=== PATIENT | male | born 1980 | race Caucasian/White ===

== ENCOUNTER 2021-11-17 13:08 | Emergency (ER) | payer OTHER, SELFPAY ==
--- NOTE | ~2021-11-17 | XR_ITS ---
EXAMINATION: XR FOOT, RIGHT CLINICAL INFORMATION: Swelling lateral and dorsal COMPARISON: None TECHNIQUE: AP, lateral, and oblique views of the right foot. FINDINGS: There is a small density along the medial aspect of the distal aspect of the distal tuft of the first digit. This could be a foreign body or dystrophic calcification. Avulsion cannot be excluded. Otherwise no acute finding. Some degenerative spurring at the insertion of the Achilles XR/XR foot RT min 3V IMPRESSION: Correlation recommended for the region of the distal aspect distal phalanx first digit. Otherwise no suspicious finding.
--- NOTE | ~2021-11-17 | US_ITS ---
EXAMINATION: US VENOUS ULTRASOUND WITH DOPPLER LOWER EXTREMITY, RIGHT CLINICAL INFORMATION: Edema, pain COMPARISON: None TECHNIQUE: Ultrasound of the deep veins is performed from the hip to the calf with compression sonography and color and pulse Doppler assessment. Spectral analysis with color-flow imaging is performed. FINDINGS: There is normal venous compression and respiratory variation and augmented flow. The visualized common femoral vein, superficial femoral vein, profunda femoral vein, popliteal vein, and the trifurcation region shows no evidence of deep venous thrombosis. There is no significant popliteal fossa cyst. If the patient's symptoms persist, followup ultrasound in 5 days 7 days might be of value to exclude proximal propagation from a non-visualized calf vein. US/US venous duplex LE RT IMPRESSION: No DVT demonstrated in the right lower extremity.
[2021-11-17 13:21] VITALS: BP 143/88; PULSE 64; RESP 18; TEMP 37.1; O2SAT 100; BMI 37.0
--- NOTE | 2021-11-17 14:58 | PC.NURSE ---
called for labs no answer
[2021-11-17 15:14] LABS: MANUAL DIFF FLAG NO
[2021-11-17 15:16] LABS: Basophils Percent Auto 0.4 % (0-2); Eosinophils Absolute Auto 0.1 X10*3/uL (0.0-0.4); Eosinophils Percent Auto 0.6 % (0-4); Hematocrit 40.3 % (42.0-52.0); Hemoglobin 13.6 g/dl (14.0-18.0); Imm Gran Abs Auto 0.02 X10*3/uL (0.00-0.03); Imm Gran Pct Auto 0.2 % (0.0-0.4); Lymphocytes Absolute Auto 1.3 X10*3/uL (1.2-4.9); Lymphocytes Percent Auto 15.9 % (20-40); Mean Corpuscular HGB Conc 33.7 g/dl (31.0-36.0); Mean Corpuscular Hemoglobin 29.4 pg (27.0-33.0); Mean Platelet Volume 8.3 fL (9.4-12.4); Monocytes Absolute Auto 0.9 X10*3/uL (0.1-1.2); Monocytes Percent Auto 10.8 % (2-11); Neutrophils Absolute Auto 5.9 x10*3/uL (2.0-8.3); Neutrophils Percent Auto 72.1 % (45-73); Platelet Count 247 X10*3/uL (160-400); Red Blood Count 4.63 X10*6/uL (4.60-5.80); Red Cell Distribution Width 11.8 % (11.0-16.0); White Blood Count 8.1 X10*3/uL (4.8-10.8)
--- NOTE | 2021-11-17 15:30 | ED.GENADULT ---
HPI - General Adult General Chief complaint: Extremity Problem Stated complaint: r leg foreign body foot Time Seen by Provider: 11/17/21 15:29 Source: patient Mode of arrival: ambulatory Limitations: no limitations History of Present Illness HPI narrative: 41-year-old male presents for DVT rule out, sent here from urgent care. Patient thinks he injured his right foot while trail running 3 weeks ago. His right foot was swollen, he went to urgent care who took x-rays the patient reports were negative for fracture, with a possible small foreign body in his foot. Patient was put on Keflex and Bactrim, course of which she finished, but states that his right foot is still swelling. States his right foot was very swollen yesterday, but the swelling has gone down today. Patient is an IV drug user, on Suboxone, his last use was today. Patient states he does not inject in his feet or his legs. 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 His foot is not painful to stand on, it is the swelling that concerns him. Patient lives in a recovery house, was recently incarcerated Related Data Allergies Allergy/AdvReac Type Severity Reaction Status Date / Time No Known Allergies Allergy Verified 11/17/21 15:42 Review of Systems Constitutional: Constitutional: Denies body ache(s), Denies chills, Denies fatigue, Denies fever(s), Denies headache(s), Denies malaise and Denies weakness Eyes: Eyes: Denies diplopia ENT: Denies vertigo, Denies dizziness, Denies headache(s) and Denies throat swelling Cardiovascular: Cardiovascular: Denies chest pain, Denies syncope, Denies leg edema, Denies lightheadedness, Denies Loss of Consciousness, Denies palpitations and Denies dyspnea Respiratory: Respiratory: Denies chest congestion, Denies cough and Denies dyspnea Musculoskeletal: Musculoskeletal: Denies muscle cramps, Denies muscle weakness, Denies numbness, Denies radiating pain into limb and Denies tingling Comments: Swelling of right foot Neurologic: Denies confusion, Denies vertigo, Denies dizziness, Denies syncope, Denies headache(s), Denies numbness, Denies tingling and Denies weakness Psychiatric: Psychiatric: Denies anxiety, Denies confusion and Denies depression Endocrine: Endocrine: Denies fatigue and Denies palpitations Allergic/Immunologic: Allergic/Immunologic: Denies throat swelling [facility] Past Medical History [facility] Narrative: IVDU Social History Social History Advance Directives: No Advance Directives Information Provided: No Physical Exam ED Vital Signs: Vital Signs - 24 hr 11/17/21 13:21 11/17/21 17:00 Temperature 98.8 F 97.6 F Pulse Rate 64 62 Respiratory Rate 18 16 Blood Pressure 143/88 H 125/90 H Pulse Oximetry 100 100 BMI result Body Mass Index 37.0 Const General: No confusion Nutritional Appearance: well nourished Orientation/consciousness: No confusion Limitations: no limitations Eyes Conjunctivae: conjunctivae normal Pupils: Equal, round and reactive pupils present EOM: EOMs intact bilaterally Neck Neck: Yes full ROM, Yes no lymphadenopathy and Yes supple Resp Effort & Inspection: normal respiratory effort and able to speak in complete sentences Auscultation: clear to auscultation bilaterally, no crackles, no rales, no rhonchi and no wheezes Cardio Rate: regular rate Rhythm: regular rhythm Heart sounds: S1 normal heart sound present and S2 normal heart sound present Skin General skin exam: no rashes or lesions noted Neuro General: No confusion Cranial nerves: Yes Equal, round and reactive pupils present Extrem Right lower extremity: full ROM, normal capillary refill, edema Details: non-pitting and 1+ and foot Details: normal capillary refill, tenderness Location: of the dorsal foot Location: laterally and of the calcaneus, toes with normal ROM and vascular exam Details: dorsalis pedis pulse present, posterior tibial pulse present and normal capillary refill; Negative for not cool and no cyanosis; Negative for no unusual warmth; No no cyanosis Psych Appearance: grossly normal Affect: normal affect Attitude: cooperative Thought process: Normal thought process present Course Course Course Narrative: 41-year-old male presents for right lower extremity swelling. Patient was sent here from urgent care for DVT rule out On exam, patient is mildly edematous in his dorsal and he lateral aspect of his right foot. Patient has intact lower extremity pulses, sensation, motor strength, DTRs. No tenderness to palpation of knee, he has full range of motion, no crepitus Patient has no leukocytosis, his vitals are stable, he is afebrileI doubt this is infectious. Right calf is not swollen, red, warm, tender. Patient is tender over the dorsal aspect of his right foot lateral aspect of right foot DVT negative for ultrasound, x-ray shows small his BP along medial aspect of distal tuft of great toe. Possibly foreign body, calcification, or avulsion fracture X-ray reading does not correlate with the location of patient's pain Gave walking boot, counseled Tylenol and will follow-up with orthopedics. Patient verbalized agreement understanding of the plan Reevaluation(s) Reevaluation #1: US/US venous duplex LE RT IMPRESSION: No DVT demonstrated in the right lower extremity. FINDINGS: There is a small? density along the medial aspect of the distal aspect of the distal tuft of the first digit. This could be a foreign body or dystrophic calcification. Avulsion cannot be excluded. Otherwise no acute finding. Some degenerative spurring at the insertion of the Achilles XR/XR foot RT min 3V IMPRESSION: Correlation recommended for the region of the distal aspect distal phalanx first digit. Otherwise no suspicious finding. Medical Decision Making Lab Data Result diagrams: 11/17/21 15:05 Labs: Lab Results 11/17/21 Range/Units 15:05 WBC 8.1 (4.8-10.8) X10*3/uL RBC 4.63 (4.60-5.80) X10*6/uL Hgb 13.6 L (14.0-18.0) g/dl Hct 40.3 L (42.0-52.0) % MCV 87.0 (80.0-98.0) fL MCH 29.4 (27.0-33.0) pg MCHC 33.7 (31.0-36.0) g/dl RDW 11.8 (11.0-16.0) % Plt Count 247 (160-400) X10*3/uL MPV 8.3 L (9.4-12.4) fL Immature Gran % (Auto) 0.2 (0.0-0.4) % Neut % (Auto) 72.1 (45-73) % Lymph % (Auto) 15.9 L (20-40) % [place] % (Auto) 10.8 (2-11) % Eos % (Auto) 0.6 (0-4) % Baso % (Auto) 0.4 (0-2) % Lymph # (Auto) 1.3 (1.2-4.9) X10*3/uL [place] # (Auto) 0.9 (0.1-1.2) X10*3/uL Eos # (Auto) 0.1 (0.0-0.4) X10*3/uL Baso # (Auto) 0.0 (0.0-0.2) X10*3/uL Abs Immat Gran (auto) 0.02 (0.00-0.03) X10*3/uL Absolute Neuts (auto) 5.9 (2.0-8.3) x10*3/uL Absolute Nucleated RBC 0.000 (0.0-0.012) X10*3/uL Nucleated RBC % (auto) 0.0 (0.0-0.2) /100WBC Discharge Plan Discharge Clinical Impression: Fractured great toe Patient Disposition: Home, Self-Care Additional Instructions: Your labs showed no evidence of infection. You have no blood clot in your leg. Your x-ray shows a possible fracture of your vague right toe, possible calcification, or possible foreign body. Please use the boot as this may help with pain. Please take Tylenol. Please follow-up with Orthopedics, I have referred you to them, but I would like you to call them at the following number [phone] Please return to emergency room for any new or concerning symptoms Referrals: Irma Townsend MD [Physician] - Interventions: ED Discharge Assessment Last Done: 11/17/21 17:09 Discharge Date/Time: 11/17/21 17:11
[2021-11-17 17:00] VITALS: BP 125/90; PULSE 62; RESP 16; TEMP 36.4; O2SAT 100
== END 2021-11-17 17:11 | disposition home or self-care (01) ==
PROVIDERS: Emergency Provider Emergency Medicine
DX: S92.424A Nondisplaced fracture of distal phalanx of right great toe, initial encounter for closed fracture (principal); Y93.02 Activity, running; R60.0 Localized edema; M79.671 Pain in right foot; Y92.828 Other wilderness area as the place of occurrence of the external cause; Y99.8 Other external cause status
CPT/HCPCS: 36415; 73630; 85025; 93971; 99283; 99284

== ENCOUNTER 2023-05-15 15:27 | Emergency (ER) | payer MEDICAID, SELFPAY ==
--- NOTE | ~2023-05-15 | US_ITS ---
EXAMINATION: US VENOUS ULTRASOUND WITH DOPPLER LOWER EXTREMITY, LEFT CLINICAL INFORMATION: Pain COMPARISON: None available. TECHNIQUE: Ultrasound of the deep veins is performed from the hip to the calf with compression sonography and color and pulse Doppler assessment. Spectral analysis with color-flow imaging is performed. FINDINGS: There is normal venous compression and respiratory variation and augmented flow. The visualized common femoral vein, superficial femoral vein, profunda femoral vein, popliteal vein, and the trifurcation region shows no evidence of deep venous thrombosis. There is no significant popliteal fossa cyst. There is a noncompressible varicosity along the left medial proximal calf correspond with the area of pain. This would be consistent with a superficial area of thrombophlebitis If the patient's symptoms persist, followup ultrasound in 5 days 7 days might be of value to exclude proximal propagation from a non-visualized calf vein. US/US venous duplex LE IMPRESSION: Superficial thrombophlebitis along a left medial calf varicosity but no central DVT demonstrated in the left lower extremity. This critical result was discussed with Dr Jimenez at 05/15/2023 5:59 PM and it was ascertained that the content and urgency of the report was understood at the time of direct communication.
--- NOTE | 2023-05-15 15:36 | ED_ITS ---
HPI - General Adult General Chief complaint: General Medical Stated complaint: cellulitis , blood clot in leg ? Time Seen by Provider: 05/15/23 20:02 Source: patient Mode of arrival: ambulatory Limitations: no limitations History of Present Illness HPI narrative: Patient is a 42 year old assigned male at with a history of IV drug use presenting to the emergency department today with left lower leg swelling, warmth, and redness. Patient states that over the last few days he was shooting up in his leg and he noticed that his leg got swollen, warm, and red. Patient denies any dizziness, lightheadedness, abdominal pain, nausea, vomiting, fever, chills, blurry vision, double vision, loss of vision, chest pain, difficulty breathing, shortness of breath, back pain, night sweats, pain with urination, increased urinary frequency, increased urinary urgency, blood in his urine or stool, syncope or a near syncopal episode, recent trauma or falls, bowel incontinence, bladder incontinence, bowel retention, bladder retention, or any other complaints at this time. Onset (ago): day(s) Location: left and lower extremity Severity: mild Relieving factors: none Exacerbating factors: none Associated symptoms: denies other symptoms Treatments prior to arrival: none Related Data Previous Rx's Medication Instructions Recorded cefuroxime axetil 250 mg tablet 250 mg PO BID 7 days #14 tabs 05/15/23 doxycycline hyclate 100 mg tablet 100 mg PO BID 7 days #14 tabs 05/15/23 Allergies Allergy/AdvReac Type Severity Reaction Status Date / Time No Known Allergies Allergy Verified 11/17/21 15:42 Review of Systems 2 Constitutional: Constitutional: Reports no additional constitutional complaints, Denies chills, Denies fever(s) and Denies night sweats Eyes: Eyes: Reports no additional eye complaints, Denies blurry vision, Denies change in vision, Denies diplopia, Denies eye discharge, Denies loss of vision and Denies eye pain ENT: Denies dizziness Cardiovascular: Cardiovascular: Reports no additional cardiovascular complaints, Denies chest pain, Denies lightheadedness, Denies Loss of Consciousness and Denies dyspnea Respiratory: Respiratory: Reports no additional respiratory complaints and Denies dyspnea Gastrointestinal: Gastrointestinal: Reports no additional gastrointestinal complaints, Denies abdominal pain, Denies melena, Denies hematochezia, Denies change in bowel habits and Denies change in stool character Genitourinary: Genitourinary: Reports no additional male genitourinary complaints, Denies hematuria, Denies oliguria, Denies difficulty urinating, Denies dysuria, Denies urinary frequency, Denies urinary hesitancy, Denies urinary incontinence and Denies urinary urgency Musculoskeletal: Musculoskeletal: Reports no additional musculoskeletal complaints, Denies numbness and Denies tingling Integumentary/Breasts: Comments: left lower leg redness, warmth, and swelling Neurologic: Denies dizziness, Denies loss of vision, Denies numbness and Denies tingling Psychiatric: Psychiatric: Reports no additional psychiatric complaints Endocrine: Endocrine: Reports no additional endocrine complaints Hematologic/Lymphatic: Hematologic/Lymphatic: Reports no additional hematologic/lymphatic complaints Allergic/Immunologic: Allergic/Immunologic: Reports no additional allergic/immunologic complaints PMFSH Past Medical History Attestation statement: The following information was validated with the patient. Source: old records reviewed and nursing notes reviewed Physical Exam ED Vital Signs: Vital Signs - 24 hr 05/15/23 15:40 05/15/23 20:00 Temperature 98.1 F 98.0 F Pulse Rate 86 66 Respiratory Rate 18 18 Blood Pressure 169/83 H 134/81 Pulse Oximetry 99 96 Oxygen Delivery Method Room Air Room Air BMI result Body Mass Index 27.6 Const General: cooperative, no acute distress, alert and awake Nutritional Appearance: well nourished Orientation/consciousness: patient oriented x3 Limitations: no limitations [facility] Head: Yes normal to inspection and Yes atraumatic Ears: hearing grossly normal bilaterally and external ears normal General nose exam: Normal external nose present, no nasal discharge noted and no epistaxis Face and sinus: Yes normal facial exam, No abrasion and No laceration Mouth: Normal oral and palatal mucosa present, no drooling and no muffled voice Eyes General: appearance normal, both eyes and all related structures Periorbital: periorbital findings normal Eyelids: Yes eyelids normal Conjunctivae: conjunctivae normal Pupils: Equal, round and reactive pupils present EOM: EOMs intact bilaterally Neck Neck: Yes normal visual inspection, Yes full ROM and Yes no lymphadenopathy Chest Chest palpation & inspection: normal inspection of the chest Resp Effort & Inspection: normal respiratory effort and able to speak in complete sentences GI Inspection: Yes normal to inspection Neuro General: patient oriented x3 and moves all extremities Cranial nerves: Yes Equal, round and reactive pupils present Cognition (Neuro): normal cognition Motor exam (neuro): 5/5 motor strength present throughout Sensory Exam: Normal double simultaneous stimulation for sensation Coordination: [id number] test normal Extrem Other: minimal swelling, redness, and warmth to the left lower extremity, no abscess or open areas General: Yes full ROM and Yes capillary refill normal Psych Appearance: grossly normal Mental Status: mental status grossly normal Affect: normal affect Attitude: cooperative Thought process: Normal thought process present Thought content: Normal thought content present Insight: Good insight present (Psych) Course Course Course Narrative: RME performed by Katharina Jain PA-C. Patient is a 42 year old assigned male at presenting to the emergency department with left lower leg pain and swelling. Patient states that he is an IV drug user. Patient states that he was on methadone but it got canceled so he went back to shooting up and he shot up in his left lower extremity. Patient states that over the last 2 days it has spread up from his lower leg to his thigh. Labs ordered. Patient placed back in the waiting room pending room availability and results. Medical Decision Making Medical Decision Making MDM Narrative: Patient is a 42 year old assigned male at with a history of IV drug use presenting to the emergency department today with left lower leg swelling, warmth, and redness. Patient's physical exam was as noted in the physical exam portion of this note. Patient's blood work showed an elevated ESR of 22 and an elevated CRP of 6.87 but the results were otherwise unremarkable. Patient's left lower leg US showed superficial thrombophlebitis but no evidence of DVT. I explained my physical exam findings as well as all test results to the patient. I answered all questions asked by the patient. Patient was given his first dose of antibiotics while in the department. I stressed the importance of the patient taking his medication as prescribed. I stressed the importance of the patient following up with his primary care provider. I stressed the importance of the patient returning to the emergency department immediately if his symptoms were to worsen or if he were to develop any dizziness, shortness of breath, difficulty breathing, chest pain, blurry vision, loss of vision, nausea, vomiting, abdominal pain, fever, chills, back pain, or any other complaints. Patient verbalized agreement and understanding with this treatment plan and discharge. Differential Diagnosis Differential Diagnoses: The differential diagnosis associated with the presentation includes Left lower leg cellulitis Left lower leg thrombophlebitis Left lower leg DVT Admission/Observation Consideration of admission/observation: Escalation of care including admission/observation considered Patient would have been admitted to the hospital had his work up had any findings where hospital admission was appropriate and his clinical presentation warranted hospital admission. Lab Data [facility] Lab Attestation statement: I reviewed the patient's lab results. My interpretation of these results are in the [facility] Rationale portion of this note. 05/15/23 16:21 05/15/23 16:20 Labs: Lab Results 05/15/23 05/15/23 Range/Units 16:20 16:21 WBC 7.1 (4.8-10.8) X10*3/uL RBC 4.51 L (4.60-5.80) X10*6/uL Hgb 12.8 L (14.0-18.0) g/dl Hct 37.7 L (42.0-52.0) % MCV 83.6 (80.0-98.0) fL MCH 28.4 (27.0-33.0) pg MCHC 34.0 (31.0-36.0) g/dl RDW 12.0 (11.0-16.0) % Plt Count 267 (160-400) X10*3/uL MPV 8.5 L (9.4-12.4) fL Immature Gran % (Auto) 0.4 (0.0-0.4) % Neut % (Auto) 69.9 (45-73) % Lymph % (Auto) 22.4 (20-40) % [place] % (Auto) 6.6 (2-11) % Eos % (Auto) 0.3 (0-4) % Baso % (Auto) 0.4 (0-2) % Lymph # (Auto) 1.6 (1.2-4.9) X10*3/uL [place] # (Auto) 0.5 (0.1-1.2) X10*3/uL Eos # (Auto) 0.0 (0.0-0.4) X10*3/uL Baso # (Auto) 0.0 (0.0-0.2) X10*3/uL Abs Immat Gran (auto) 0.03 (0.00-0.03) X10*3/uL Absolute Neuts (auto) 5.0 (2.0-8.3) x10*3/uL Absolute Nucleated RBC 0.000 (0.0-0.012) X10*3/uL Nucleated RBC % (auto) 0.0 (0.0-0.2) /100WBC ESR 22 H (0-15) MM/HR PT 15.5 H (11.1-13.3) SEC INR 1.3 H (0.9-1.1) APTT 31.5 (26.0-36.4) SEC Sodium 135 (135-145) mmol/L Potassium 3.8 (3.3-5.1) mmol/L Chloride 102 (96-108) mmol/L Carbon Dioxide 25 (22-29) mmol/L Anion Gap 12 (12-20) BUN 10 (9-16) mg/dL Creatinine 0.74 (0.5-1.4) mg/dL Estim Creat Clear Calc 134.2 Estimated GFR > 60 Random Glucose 103 (60-115) mg/dL Lactic Acid 0.9 (0.5-2.0) mmol/L Calcium 9.1 (8.4-10.2) mg/dL Magnesium 2.0 (1.6-2.6) mg/dL Total Bilirubin 0.7 (0.0-1.0) mg/dL AST 13 (5-37) U/L ALT 8 (0-40) U/L Alkaline Phosphatase 77 (39-117) U/L C-Reactive Protein 6.87 H (< or = 0.50) mg/dL Total Protein 7.3 (6.5-8.0) g/dL Albumin 4.0 (3.5-5.0) g/dL Independent Interpretation I performed an independent interpretation of an: Ultrasound Interpretation: My interpretation is in agreement with the radiologist's impression of this imaging study. - EXAMINATION: US VENOUS ULTRASOUND WITH DOPPLER LOWER EXTREMITY, LEFT CLINICAL INFORMATION: Pain COMPARISON: None available. TECHNIQUE: Ultrasound of the deep veins is performed from the hip to the calf with compression sonography and color and pulse Doppler assessment. Spectral analysis with color-flow imaging is performed. FINDINGS: There is normal venous compression and respiratory variation and augmented flow. The visualized common femoral vein, superficial femoral vein, profunda femoral vein, popliteal vein, and the trifurcation region shows no evidence of deep venous thrombosis. There is no significant popliteal fossa cyst. There is a noncompressible varicosity along the left medial proximal calf correspond with the area of pain. This would be consistent with a superficial area of thrombophlebitis If the patient's symptoms persist, followup ultrasound in 5 days 7 days might be of value to exclude proximal propagation from a non-visualized calf vein. US/US venous duplex LE LT IMPRESSION: Superficial thrombophlebitis along a left medial calf varicosity but no central DVT demonstrated in the left lower extremity. This critical result was discussed with Dr Jimenez at 05/15/2023 5:59 PM and it was ascertained that the content and urgency of the report was understood at the time of direct communication. Dictated By: Taj Vickers MD Signed By: Electronically signed by Taj Vickers MD 05/15/23 [id number] Radiology Impression Discussion of test interpretation with radiology: I have reviewed the radiologist's reading. Prescription Management I considered prescription management with: Antibiotic (patient prescribed antibiotics for his cellulitis and thrombophlebitis.) Social Determinants Patient?s care significantly limited by Social Determinants of Health including: Other Social Determinant of Health (patient is an IV drug user.) Discharge Plan Discharge Clinical Impression: Phlebitis, Cellulitis Patient Disposition: Home, Self-Care Instructions: Cellulitis (DC), Superficial Thrombophlebitis (ED) Additional Instructions: Follow up with your primary care provider. Return to the emergency department immediately if your symptoms worsen or if you develop any dizziness, shortness of breath, difficulty breathing, chest pain, blurry vision, loss of vision, nausea, vomiting, abdominal pain, fever, chills, back pain, or any other complaints. Prescriptions: New cefuroxime axetil 250 mg tablet 250 mg PO BID 7 Days Qty: 14 0RF doxycycline hyclate 100 mg tablet 100 mg PO BID 7 Days Qty: 14 0RF Referrals: [facility] Family Medicine [Provider Group] (Call to establish and follow up with a primary care provider. If you already have a primary care provider, please follow up with them.) [facility] Primary Care, [place] [Provider Group] (Call to establish and follow up with a primary care provider. If you already have a primary care provider, please follow up with them.) [facility] Primary Care,Jaci [Provider Group] (Call to establish and follow up with a primary care provider. If you already have a primary care provider, please follow up with them.) Print Language: [place]
[2023-05-15 15:40] VITALS: BP 169/83; PULSE 86; RESP 18; TEMP 36.7; O2SAT 99; BMI 27.6
[2023-05-15 16:25] LABS: MANUAL DIFF FLAG NO
[2023-05-15 16:31] LABS: Basophils Percent Auto 0.4 % (0-2); Eosinophils Percent Auto 0.3 % (0-4); Hematocrit 37.7 % (42.0-52.0); Hemoglobin 12.8 g/dl (14.0-18.0); Imm Gran Abs Auto 0.03 X10*3/uL (0.00-0.03); Imm Gran Pct Auto 0.4 % (0.0-0.4); Lymphocytes Absolute Auto 1.6 X10*3/uL (1.2-4.9); Lymphocytes Percent Auto 22.4 % (20-40); Mean Corpuscular Hemoglobin 28.4 pg (27.0-33.0); Mean Corpuscular Volume 83.6 fL (80.0-98.0); Mean Platelet Volume 8.5 fL (9.4-12.4); Monocytes Absolute Auto 0.5 X10*3/uL (0.1-1.2); Monocytes Percent Auto 6.6 % (2-11); Neutrophils Percent Auto 69.9 % (45-73); Platelet Count 267 X10*3/uL (160-400); Red Blood Count 4.51 X10*6/uL (4.60-5.80); White Blood Count 7.1 X10*3/uL (4.8-10.8)
[2023-05-15 16:32] LABS: INTERNATIONAL NORM RATIO 1.3 (0.9-1.1); Prothrombin Time 15.5 SEC (11.1-13.3)
[2023-05-15 16:34] LABS: Partial Thromboplastin Time 31.5 SEC (26.0-36.4)
[2023-05-15 16:37] LABS: Lactic Acid 0.9 mmol/L (0.5-2.0)
[2023-05-15 16:42] LABS: Alanine Aminotransferase 8 U/L (0-40); Alkaline Phosphatase 77 U/L (39-117); Anion Gap 12 (12-20); Aspartate Amino Transferase 13 U/L (5-37); Bilirubin Total 0.7 mg/dL (0.0-1.0); Blood Urea Nitrogen 10 mg/dL (9-16); C Reactive Protein 6.87 mg/dL (< or = 0.50); Calcium 9.1 mg/dL (8.4-10.2); Carbon Dioxide 25 mmol/L (22-29); Chloride 102 mmol/L (96-108); Creatinine Clr Calc Pharmacy 134.2; Estimated Glomerular Filt Rate > 60; Glucose Random 103 mg/dL (60-115); Potassium 3.8 mmol/L (3.3-5.1); Sodium 135 mmol/L (135-145); Total Protein 7.3 g/dL (6.5-8.0)
[2023-05-15 17:13] LABS: Erythrocyte Sedimentation Rate 22 MM/HR (0-15)
[2023-05-15 20:00] VITALS: BP 134/81; PULSE 66; RESP 18; TEMP 36.7; O2SAT 96
[2023-05-15] MEDS: Doxycycline Monohydrate 100 MG CAPSULE PO (20:21)
[2023-05-15] MEDS: cefuroxime axetiL 250 MG TABLET PO (20:21)
== END 2023-05-15 20:25 | disposition home or self-care (01) ==
LOC: HO.ED 20:24
PROVIDERS: Physician Assistant Medical; Emergency Provider Emergency Medicine Emergency Medical Services
DX: I80.9 Phlebitis and thrombophlebitis of unspecified site (principal); L03.116 Cellulitis of left lower limb; M79.605 Pain in left leg
CPT/HCPCS: 36415; 80053; 83605; 83735; 85025; 85610; 85652; 85730; 86140; 87040; 93971; 99282; 99284

== ENCOUNTER 2023-12-04 17:49 | Emergency (ER) | payer MEDICAID, SELFPAY ==
--- NOTE | ~2023-12-04 | XR_ITS ---
EXAMINATION: XR LUMBOSACRAL SPINE CLINICAL INFORMATION: Low back pain. COMPARISON: None available. TECHNIQUE: Three views of the lumbosacral spine. FINDINGS: There is normal lumbar lordosis. The vertebral heights, alignment and disc heights are normal. No visible acute fracture, dislocation or subluxation. SI joints are symmetrical and normal. The soft tissues are normal. XR/XR lumbar spine 2-3V IMPRESSION: Unremarkable lumbar spine exam.
[2023-12-04 18:22] VITALS: BP 117/78; PULSE 56; RESP 14; TEMP 37.3; O2SAT 98; BMI 27.3
--- NOTE | 2023-12-04 18:22 | ED_ITS ---
HPI - General Adult General Chief complaint: Back Pain/Injury Stated complaint: back pain Time Seen by Provider: 12/04/23 21:22 Source: patient Mode of arrival: wheelchair Limitations: no limitations History of Present Illness ED Provider: Marin Hernández NP HPI narrative: Patient is a 43-year-old male who presents to the emergency department for evaluation. He arrived here today high public transportation. At the time my evaluation he is sitting in a wheelchair. 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 He had a long bus ride home, he states after sitting down for some time he had trouble standing up due to pain in his lower back. He reports that the muscles in this area feel very tight. Pain radiates diffusely across the lower back and is made worse with particular movements. Reports a history of a similar pain in the past due to a pulled muscle in his upper back. Pain does not radiate to the legs. Denies recent precipitating injury, fevers, chills, burning with micturition, urinary frequency/urgency/hesitancy, bladder or bowel dysfunction, numbness or tingling of the perineum or bilateral legs. Denies any recent surgical procedures, any known immune compromising conditions, personal history of cancer. He does admit to a history of IV drug usage; using intravenous heroin, he recently started at [facility] methadone clinic last week, currently taking 80 mg daily, he does state that he was unable to get there today for his methadone dosing. Related Data Previous Rx's ?Medication ?Instructions ?Recorded cefuroxime axetil 250 mg tablet 250 mg PO BID 7 days #14 tabs 05/15/23 doxycycline hyclate 100 mg tablet 100 mg PO BID 7 days #14 tabs 05/15/23 cyclobenzaprine 5 mg tablet 5 mg PO TID PRN muscle spasm #14 12/05/23 tabs Allergies Allergy/AdvReac Type Severity Reaction Status Date / Time No Known Allergies Allergy Verified 12/04/23 18:24 Review of Systems Review of Systems: Yes all other systems are reviewed and are negative PMFSH Past Medical History Attestation statement: The following information was validated with the patient. Source: old records reviewed Social History Social History Unable to assess alcohol history related to: Unknown Smoked in Last 30 Days: Yes Use of substances other than those prescribed or required for medical reasons: Unknown Advance Directives: No Advance Directives Information Provided: No Do you have a plan to hurt others: No Plan Physical Exam ED Vital Signs: Vital Signs - 24 hr 12/04/23 18:22 12/04/23 21:18 Temperature 99.2 F 98.8 F Pulse Rate 56 61 Respiratory Rate 14 18 Blood Pressure 117/78 120/69 Pulse Oximetry 98 96 Oxygen Delivery Method Room Air Room Air BMI result Body Mass Index 27.3 Appearance: Alert.?Oriented to person, place and time. No acute distress.?Normal affect. Eyes: Pupils equal, round and reactive to light.? ENT: Pharynx normal.?? Neck: Normal inspection.? Neck supple.?? CVS: Heart sounds normal. Normal heart rate and rhythm.? Pulses normal; bilateral radial pulses 2+, bilateral posterior tibial/dorsalis pedis pulses 2+.? Respiratory: No respiratory distress.? Lung sounds clear to auscultation bilaterally?? Abdomen: Soft and non-tender. Normoactive bowel sounds. Skin: Skin warm and dry.? Normal skin color.? Extremities: No lower extremity edema.? No calf ttp? Back: + mild paraspinal muscular tenderness from lumbar region to coccyx. No CVA tenderness. No midline spinal tenderness, step-off's, or deformity. Full ROM intact in bilateral lower extremities. No rashes, lesions, areas of induration or fluctuance, or signs of infection noted. Neuro: Moves all extremities spontaneously. 5/5 strength in hip extension/flexion, abduction, adduction. Sensation to light touch intact bilaterally. Patellar and Achilles reflex 2+ bilaterally. No ataxia, antalgic gait.. No focal neuro deficits. Course Course Course Narrative: RME, this is a rapid medical exam performed by Dillon Taylor please refer to p [facility] provider for complete H&P- 43-year-old male presents for evaluation of lower back pain. 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 He reports he has had lower back pain since last night that radiates to both sides. His pain is worse with movement. He is also requesting his methadone dose that he did not get this morning. Plan for x-ray Medications Administered Discontinued Medications Generic Name Dose Route Start Last Admin Trade Name Freq PRN Reason Stop Dose Admin Cyclobenzaprine HCl 10 mg 12/04/23 22:12 12/04/23 22:15 Cyclobenzaprine Hcl 10 Mg Tablet PO 12/04/23 22:13 10 mg ONCE ONE Administration Medical Decision Making Medical Decision Making [facility] Narrative: Patient is a 43-year-old male with past medical history of intravenous opiate usage currently on methadone presenting to emergency department for evaluation of lower back pain as per HPI. Exacerbated with movement, suspect that Pain is most consistent with muscular pain, although cannot completely exclude herniated disc. On neurological exam there are no deficits. He does have a history of IV drug usage however he is afebrile without tachycardia, no obvious rashes lesions or midline lumbar spine tenderness to suggest spinal infection epidural abscess. Presentation not consistent with spinal fracture, AAA, dissection. No current indication for MRI or CT. On exam no concern for cauda equina syndrome. XR of the lumbar spine reveals no acute pathology. He received a dose of cyclobenzaprine in the emergency department with improvement in his pain. He is able to ambulate without assistance, noted to be bending forward at the waist and stretching backwards hyperextending his lumbar spine. I feel that he is stable for discharge home at this time, will provide with a prescription for cyclobenzaprine, and follow-up with primary care provider, and patient agreed with plan. Differential Diagnosis Differential Diagnoses: The differential diagnosis associated with the presentation includes ( see narrative above) Admission/Observation Consideration of admission/observation: Escalation of care including admission/observation considered ( see narrative above) Independent Interpretation I performed an independent interpretation of an: Plain X-Ray (No acute fracture) Radiology Impression Discussion of test interpretation with radiology: I have reviewed the radiologist's reading. Radiologist Impression: XR/XR lumbar spine 2-3V IMPRESSION: Unremarkable lumbar spine exam. Independent Historian Clinical information obtained from an independent historian. History obtained from or confirmed by: Spouse Tests considered The following testing was considered but not selected: See narrative above Prescription Management I considered prescription management with: Pain Medication Discharge Plan Discharge Clinical Impression: Strain of lumbar region Instructions: Low Back Strain (ED), Lower Back Exercises (ED) Prescriptions: New cyclobenzaprine 5 mg tablet 5 mg PO TID PRN (Reason: muscle spasm) Qty: 14 0RF No Action cefuroxime axetil 250 mg tablet 250 mg PO BID 7 Days Qty: 14 0RF doxycycline hyclate 100 mg tablet 100 mg PO BID 7 Days Qty: 14 0RF Referrals: Physician,None [Primary Care Provider] - Print Language: Greenlandic
[2023-12-04 21:18] VITALS: BP 120/69; PULSE 61; RESP 18; TEMP 37.1; O2SAT 96
[2023-12-04] MEDS: Cyclobenzaprine HCl 10 MG TABLET PO (22:15)
[2023-12-05 00:24] VITALS: BP 95/45; PULSE 50; RESP 16; TEMP 36.8; O2SAT 94
[2023-12-05 00:26] VITALS: BP 95/45; PULSE 50; RESP 16; TEMP 36.8; O2SAT 94
== END 2023-12-05 00:27 | disposition home or self-care (01) ==
PROVIDERS: Emergency Provider Internal Medicine
DX: S39.012A Strain of muscle, fascia and tendon of lower back, initial encounter (principal); X50.0XXA Overexertion from strenuous movement or load, initial encounter; Y93.89 Activity, other specified; Y92.9 Unspecified place or not applicable; Y99.9 Unspecified external cause status
CPT/HCPCS: 72100; 99283; 99284